=== PATIENT | female | born 1990 | race Two or more races ===

== ENCOUNTER 2018-04-19 16:11 | Emergency (ER) | payer OTHER ==
[~2018-04-19] VITALS: Ht 175.3 cm; Wt 102.1 kg
[2018-04-19] MEDS ORDERED: [UNRECOGNIZED DRUG - REMARK] (16:24)
[2018-04-19] MEDS ORDERED: ALBU8.5H8 (16:24)
--- NOTE | 2018-04-19 16:45 | NUR ---
Dr Tabares at the bedside for MSE.
[2018-04-19] MEDS ORDERED: IBUPROFEN 600 MG TABLET ONE (16:55)
[2018-04-19] MEDS ORDERED: ACETAMINOPHEN ES 500 MG TABLET ONE (16:55)
[2018-04-19] MEDS ORDERED: ACETAMINOPHEN ES 500 MG TABLET PO ONE (17:00)
[2018-04-19] MEDS ORDERED: IBUPROFEN 600 MG TABLET PO ONE (17:00)
--- NOTE | 2018-04-19 17:09 | NUR ---
Pt out of ER for Xray.
--- NOTE | 2018-04-19 17:43 | NUR ---
Patient discharged to home in stable conditon. Written and verbal after care instructions given. Patient verbalizes understanding of instructions.
[2018-04-19 17:44] VITALS: BP 126/70
== END 2018-04-19 17:46 | disposition home or self-care (01) ==
LOC: ER 16:15
DX: S16.1XXA Strain of muscle, fascia and tendon at neck level, initial encounter (principal); J45.909 Unspecified asthma, uncomplicated; Z88.0 Allergy status to penicillin; V49.9XXA Car occupant (driver) (passenger) injured in unspecified traffic accident, initial encounter; Y93.89 Activity, other specified; Y92.410 Unspecified street and highway as the place of occurrence of the external cause; Y99.8 Other external cause status
CPT/HCPCS: 72050; 99284; A4663; A9150